=== PATIENT | female | born 1965 | race Caucasian/White ===

== ENCOUNTER 2016-11-07 20:37 | Emergency (ER) | payer OTHER ==
[2016-11-07] MEDS ORDERED: ENOXAPARIN SODIUM 100 MG/ML SYR SUBCUT ONE (21:12)
[2016-11-07] MEDS ORDERED: ENOXAPARIN SODIUM 60 MG/0.6 ML SYR SUBCUT ONE (21:12)
--- NOTE | 2016-11-07 21:46 | ER NURSING DOCUMENTATION ---
Nurse's Notes [facility] Name:Eden Rodriguez Age:51 yrs Sex:Female :1965 Arrival Date:11/07/2016 Time:20:37 Bed4 Private MD:Natalya Bruce Diagnosis:Swelling Of Limb Presentation: 11/07 20:52 Presenting complaint: Patient states: left lower extremity swelling for 1 day with lb posterior left pain. Transition of care: Home. Notified ED Physician of Josias Berg notified. 20:52 Acuity: JACOBY 4 lb 20:52 Method Of Arrival: Walk In Triage Assessment: 20:56 General: Appears in no apparent distress, Behavior is appropriate for age. Pain: lb Complains of pain in lateral aspect of left calf Pain does not radiate. Pain currently is 2 out of 10 on a pain scale. Historical: - Allergies: Vancomycin; - Home Meds: 1. Lyrica Oral 2. Zyprexa Oral 3. Celexa Oral 4. Adderall XR Oral 5. amlodipine oral 6. Tramadol Oral - PMHx: ADHD; Hypertension; DEPRESSION; - PSHx: Appendectomy; Cholecysectomy; - Tetanus: < 10 years. - Ebola Screening: : Patient denies exposure to infectious person. Patient denies travel to an Ebola-affected area in the 21 days before illness onset. . - Immunization history: Flu Vaccine < 1 year. - Social history: Smoking status: Patient states was never smoker of tobacco. Patient uses alcohol but reports only rare drinking. Screenin:57 Infectious Disease Risk None. Abuse screen: Denies threats or abuse. Denies injuries lb from another. Nutritional screening: No deficits noted. Assessment: 20:57 See Triage Assessment done by same RN. lb Vital Signs: 20:56 BP 156 / 76; Pulse 103; Resp 20; Temp 98; Pulse Ox 94% ; Weight 136.08 kg; Height 5 ft. lb 8 in. (172.72 cm); Pain 2/10; 20:56 Body Mass Index 45.61 (136.08 kg, 172.72 cm) lb ED Course: 20:51 Patient arrived in ED. em2 20:52 Natalya Bruce is Private Physician. em2 20:52 Geena Harvey is Primary Nurse. lb 20:53 Triage completed. lb 20:56 Prince Ferrara MD is Attending Physician. edie 20:57 Valuables Remains with patient Patient has correct armband on for positive lb identification. Call light in reach. 21:22 Natalya Bruce is Referral Physician. edie Administered Medications: 21:06 Drug: Lovenox 150 mg; Route: Sub-Q; Site: right lower abdomen; lb :44 Follow up: Response: No adverse reaction lb Outcome: 21:23 Discharge ordered by . edie 21:44 Discharged to home ambulatory. lb :44 Condition: stable :44 Discharge Assessment: Patient awake, alert and oriented x 3. No cognitive and/or functional deficits noted. Patient verbalized understanding of disposition instructions. 21:44 Instructed on discharge instructions, follow up and referral plans. to have outpatient ultrasound in am 21:45 Patient left the ED. lb 11/09 10:09 Discharge F/U Call: Unable to reach: no answer st Signatures: Jamilah Ridley, RN RN Prince Bright MD MD jm Meinking-reg, Gogo-kade em2 Geena Harvey
--- NOTE | 2016-11-07 21:46 | ER PHYSICIAN DOCUMENTATION ---
Physician Documentation [facility] Name:Eden Rodriguez Age:51 yrs Sex:Female :1965 Arrival Date:11/07/2016 Time:20:37 Bed4 Private MD:Natalya Bruce ED, John Disposition: 11/07/16 21:23 Discharged to Home/Self Care. Impression: Swelling Of Limb. - Condition is Good. - Discharge Instructions: Deep Vein Thrombosis - DVT. - Medical Reconciliation form form. - Follow up: Natalya Bruce; When: Tomorrow; Reason: Recheck today's complaints, Continuance of care. - Problem is new. - Symptoms have improved. - Notes: We have treated you for a DVT or a blood clot just in case you have one. GEt your ultrasound tomorrow. We will have the results faxed over to Sadaf. If Sadaf cannot see you and the results are positve, call the ER or get ahold of me somehow. HPI: 11/07 21:00 This 51 yrs old Female presents to ER via Walk In with complaints of Leg jm Swelling - left. 21:00 The patient presents with swelling. The complaints affect the left howell. Context: the jm patient is able to ambulate. Onset: The symptom(s)/episode began/occurred yesterday, and became worse today. Associated signs and symptoms: Pertinent negatives rash, warmth. 51 yo F who was released about 6 days ago for LLE cellulitis here for LLE edema. Pt feels her cellulitis is gone. 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 Pt w/o hx of PE/DVT. . Historical: - Allergies: Vancomycin; - Home Meds: 1. Lyrica Oral 2. Zyprexa Oral 3. Celexa Oral 4. Adderall XR Oral 5. amlodipine oral 6. Tramadol Oral - PMHx: ADHD; Hypertension; DEPRESSION; - PSHx: Appendectomy; Cholecysectomy; - Tetanus: < 10 years. - Ebola Screening: : Patient denies exposure to infectious person. Patient denies travel to an Ebola-affected area in the 21 days before illness onset. . - Immunization history: Flu Vaccine < 1 year. - Social history: Smoking status: Patient states was never smoker of tobacco. Patient uses alcohol but reports only rare drinking. ROS: 21:00 Cardiovascular: Negative for chest pain. 21:00 Respiratory: Negative for cough, shortness of breath. 21:00 MS/extremity: Positive for swelling. 21:00 Neuro: Negative for dizziness. 21:00 All other systems are negative. Exam: 21:00 Constitutional: The patient appears in no acute distress, alert, awake, obese. 21:00 Cardiovascular: Rate: tachycardic, Rhythm: regular. 21:00 Cardiovascular: Edema: 1+ edema to level of right midcalf, 2+ edema to level of left midcalf. 21:00 Respiratory: Respirations: normal, Breath sounds: are normal. 21:00 Musculoskeletal/extremity: Weight bearing: able to fully bear weight, Calves: are non-tender, are not equal in size: left is larger than right. 21:00 Skin: Appearance: Color: pink, cellulitis, is not appreciated. 21:00 Psych: Behavior/mood is pleasant, cooperative, Affect is calm. Vital Signs: 20:56 BP 156 / 76; Pulse 103; Resp 20; Temp 98; Pulse Ox 94% ; Weight 136.08 kg; Height 5 ft. lb 8 in. (172.72 cm); Pain 2/10; 20:56 Body Mass Index 45.61 (136.08 kg, 172.72 cm) lb MDM: 20:56 Patient medically screened. 21:00 Differential diagnosis: DVT vs peripheral edema. Data reviewed: vital signs, nurses notes, old medical records, and as a result, I will discharge patient. Counseling: I had a detailed discussion with the patient and/or guardian regarding: the historical points, exam findings, and any diagnostic results supporting the discharge/admit diagnosis, the need for outpatient follow up, with the patient's primary care provider. ED course: I feel pt's D-dimer will be elevated given all she has been through recently. Pt needs US but none is available at this hour. I will have pt return for outpt US of the LLE in the AM. I will have the results CC'd to her PCP, Sadaf Bruce, so she can f/u. For now, we will give her 1 dose of lovenox. . Dispensed Medications: 21:06 Drug: Lovenox 150 mg; Route: Sub-Q; Site: right lower abdomen; lb 21:44 Follow up: Response: No adverse reaction lb Signatures: Prince Ferrara MD MD jm Bollock, Lynda lb
== END 2016-11-07 21:46 | disposition home or self-care (01) ==
LOC: ER 20:37
DX: M79.89 Other specified soft tissue disorders (principal); R60.0 Localized edema; I10 Essential (primary) hypertension; Z79.899 Other long term (current) drug therapy
CPT/HCPCS: 96372; 99283; J1650

== ENCOUNTER 2017-02-14 21:14 | Emergency (ER) | payer OTHER ==
--- NOTE | 2017-02-14 21:49 | RADIOLOGY REPORT ---
HISTORY: Pain across foot for several days, unknown injury COMPARISON: None. FINDINGS: Three views of the foot obtained. No acute fracture or dislocation. Mild degenerative changes of the midfoot and interphalangeal joints. Plantar calcaneal spur. Trace dorsal soft tissue swelling. No rad iopaque foreign body. IMPRESSION: 1. No acute osseous abnormality. 2. Mild degenerative changes of the midfoot and interphalangeal joints. Dental calcaneal spur. Final Electronic Signature: This report was electronically signed by Gordon Taylor MD on 02/14/2017 9:47 PM. tanja /
--- NOTE | 2017-02-14 22:15 | ER PHYSICIAN DOCUMENTATION ---
Physician Documentation [facility] Name:Eden Rodriguez Age:51 yrs Sex:Female :1965 Arrival Date:02/14/2017 Time:21:14 Bed6 Private MD: John Cervantes Disposition: 02/14/17 21:43 Discharged to Home/Self Care. Impression: Foot Contusion. - Condition is Good. - Discharge Instructions: CONTUSION, Foot. - Work release form, Medical Reconciliation form form. - Follow up: Pito Terrazas DO, Gordon Barnes MD; When: 1 week; Reason: Recheck today's complaints. - Problem is new. - Symptoms are unchanged. HPI: 02/14 21:39 This 51 yrs old Female presents to ER via Private Vehicle with complaints of sc Foot Pain - LEFT. 21:39 The patient presents with an injury. The complaints affect the left foot. Context: The sc problem was sustained inside, resulted from a mis-step by the patient, Mechanism of Injury: Hyperdorsiflexion the patient can partially bear weight, must have assistance. Onset: The symptom(s)/episode began/occurred today. Modifying factors: The symptoms are alleviated by nothing. Historical: - Allergies: Vancomycin; - Home Meds: 1. Lyrica Oral 2. Zyprexa Oral 3. Celexa Oral 4. Adderall XR Oral 5. amlodipine oral 6. Tramadol Oral 7. Flexeril Oral - PMHx: ADHD; HYPERTENSION; DEPRESSION; Swelling Of Limb (November 07, 2016); - PSHx: APPENDECTOMY; CHOLECYSECTOMY; - Tetanus: < 10 years. - Ebola Screening: : Patient negative for fever greater than or equal to 101.5 degrees Fahrenheit, and additional compatible Ebola Virus Disease symptoms. - Immunization history: Flu Vaccine < 1 year. - Social history: Smoking status: Patient states was never smoker of tobacco. ROS: 21:40 MS/extremity: Positive for injury or acute deformity, pain, Negative for paresthesias, sc swelling, tingling. 21:40 Constitutional: Negative for fever, chills, and weight loss. sc Eyes: Negative for injury, pain, redness, and discharge. Neck: Negative for injury, pain, and swelling. Skin: Negative for injury, rash, and discoloration. 21:40 Neuro: Negative for headache, weakness, numbness, tingling, and seizure. Exam: Constitutional: This is a well developed, well nourished patient who is awake, alert, and in no acute distress. Head/Face: Normocephalic, atraumatic. Eyes: Pupils equal round and reactive to light, extra-ocular motions intact. Lids and lashes normal. Conjunctiva and sclera are non-icteric and not injected. Cornea within normal limits. Periorbital areas with no swelling, redness, or edema. Skin: Warm, dry with normal turgor. Normal color with no rashes, no lesions, and no evidence of cellulitis. 21:41 Neuro: Awake and alert, GCS 15, oriented to person, place, time, and situation. sc Cranial nerves II-XII grossly intact. Motor strength 5/5 in all extremities. Sensory grossly intact. Cerebellar exam normal. Normal gait. 21:41 Musculoskeletal/extremity: Extremities: grossly normal except: pain, ROM: limited active range of motion due to pain, limited passive range of motion due to pain, Circulation is intact in all extremities. Sensation intact. Compartment Syndrome exam of affected extremity: is normal. Vital Signs: 21:20 BP 179 / 88; Pulse 105; Resp 19; Temp 98.6(O); Pulse Ox 93% on R/A; Weight 90.72 kg; rh Height 5 ft. 8 in. (172.72 cm); Pain 8/10; 21:20 Body Mass Index 30.41 (90.72 kg, 172.72 cm) rh MDM: 21:18 Patient medically screened. ma 21:41 Differential diagnosis: fracture, sprain. Data reviewed: vital signs, nurses notes, ma radiologic studies, and as a result, I will discharge patient. Counseling: I had a detailed discussion with the patient and/or guardian regarding: the historical points, exam findings, and any diagnostic results supporting the discharge/admit diagnosis, radiology results, the need for outpatient follow up, for a referral to a specialist, to return to the emergency department if symptoms worsen or persist or if there are any questions or concerns that arise at home. 02/14 21:51 Order name: FOOT;[address] [place] [id number] EDRI 02/14 21:18 Order name: ORTHO: Ice Pack; Complete Time: 21:18 rh Dispensed Medications: No medications were administered Signatures: John Bruce MD MD sc Hofsess, Rachel
--- NOTE | 2017-02-14 22:15 | ER NURSING DOCUMENTATION ---
Nurse's Notes [facility] Name:Eden Rodriguez Age:51 yrs Sex:Female :1965 Arrival Date:02/14/2017 Time:21:14 Bed6 Private MD: Diagnosis:Foot Contusion Presentation: 02/14 21:18 Presenting complaint: Patient states: Pt has had pain in the foot for about one week. rh Pt states that tonight she stepped on something sideways with the foot and felt a pop. Pt c/o pain in the left big toe and top of foot. Transition of care: Home. 21:18 Acuity: JACOBY 4 rh 21:18 Method Of Arrival: Private Vehicle rh Triage Assessment: 21:20 General: Appears comfortable, Behavior is cooperative. Pain: Complains of pain in rh dorsum of left foot and left first toe. Neuro: Level of Consciousness is awake, alert, obeys commands, Oriented to person, place, time, event. Derm: Skin is intact, is healthy with good turgor, Skin is pink, warm & dry. Musculoskeletal: Circulation, motion, and sensation intact Range of motion intact in all extremities. Historical: - Allergies: Vancomycin; - Home Meds: 1. Lyrica Oral 2. Zyprexa Oral 3. Celexa Oral 4. Adderall XR Oral 5. amlodipine oral 6. Tramadol Oral 7. Flexeril Oral - PMHx: ADHD; HYPERTENSION; DEPRESSION; Swelling Of Limb (November 07, 2016); - PSHx: APPENDECTOMY; CHOLECYSECTOMY; - Tetanus: < 10 years. - Ebola Screening: : Patient negative for fever greater than or equal to 101.5 degrees Fahrenheit, and additional compatible Ebola Virus Disease symptoms. - Immunization history: Flu Vaccine < 1 year. - Social history: Smoking status: Patient states was never smoker of tobacco. Screenin:21 Infectious Disease Risk None. Abuse screen: Denies threats or abuse. Denies injuries rh from another. Nutritional screening: No deficits noted. Assessment: 21:21 See Triage Assessment done by same RN. rh Vital Signs: 21:20 BP 179 / 88; Pulse 105; Resp 19; Temp 98.6(O); Pulse Ox 93% on R/A; Weight 90.72 kg; rh Height 5 ft. 8 in. (172.72 cm); Pain 8/10; 21:20 Body Mass Index 30.41 (90.72 kg, 172.72 cm) ED Course: 21:15 Patient arrived in ED. dp 21:18 John Bruce MD is Attending Physician. or 21:18 Betina Jama is Primary Nurse. 21:19 Triage completed. rh 21:21 Notified ED Physician of patient's arrival and chief complaint. Dr. Bruce notified. rh Affected limb iced. Affected limb elevated. 21:21 Valuables Remains with patient Patient has correct armband on for positive rh identification. Bed in low position. Call light in reach. Side rails up X 1. 21:31 Port Xray Completed. tt 21:42 Pito Terrazas DO, Gordon Barnes MD is Referral Physician. or 22:00 Walking boot applied. Administered Medications: No medications were administered Outcome: 21:43 Discharge ordered by . sc 22:14 Discharged to home ambulatory, with family. 22:14 Condition: improved 22:14 Discharge Assessment: Patient awake, alert and oriented x 3. No cognitive and/or functional deficits noted. Patient verbalized understanding of disposition instructions. 22:14 Discharge instructions given to patient, family, Instructed on discharge instructions, follow up and referral plans. Demonstrated understanding of instructions. 22:15 Patient left the ED. Signatures: John Bruce MD MD or Kaitlin Banks tt Betina Jama rh Jennifer Turcios dp
== END 2017-02-14 22:15 | disposition home or self-care (01) ==
LOC: ER 21:14
DX: S90.32XA Contusion of left foot, initial encounter (principal); W18.49XA Other slipping, tripping and stumbling without falling, initial encounter; Y93.01 Activity, walking, marching and hiking
CPT/HCPCS: 99283